=== PATIENT | male | born 2000 | race Caucasian/White ===

== ENCOUNTER 2021-04-28 08:52 | Emergency (ER) | payer BC ==
[~2021-04-28] VITALS: Ht 182.9 cm; Wt 59.5 kg
--- NOTE | 2021-04-28 09:24 | RAD ---
INDICATION: Reason: abdominal pain / Spl. Instructions: / History: COMPARISON: None. IMPRESSION: Abdomen: 2 views obtained. Scoliotic curvature of the spine. Moderate stool at the distal colon with grossly nonobstructive bowel gas pattern. Electronically signed by: Taj Ordonez MD (04/28/2021 9:22 AM) [id number]
[2021-04-28] MEDS ORDERED: IV NORMAL SALINE 1,000ML 1,000 ML IV ONE (09:30)
[2021-04-28] MEDS ORDERED: ONDANSETRON PF 4 MG/2 ML VIAL. IVP ONE (09:45)
[2021-04-28 10:09] LABS: BARBITURATES NEG (NEG); BENZODIAZEPINES NEG (NEG); CANNABINOIDS NEG (NEG); COCAINE NEG (NEG); METHADONE NEG (NEG); OPIATES NEG (NEG); PHENCYCLIDINE NEG (NEG)
[2021-04-28 10:10] LABS: AMPHETAMINE/METHAMPHETAMINE NEG (NEG)
[2021-04-28 10:17] LABS: BASO % 1 % (0-3); EOS # 0.4 x10^3/uL (0.0-0.7); EOS % 9 % (0-3); HEMATOCRIT 45.5 % (39.0-53.0); HEMOGLOBIN 15.3 g/dL (13.0-17.5); LYMPH # 1.3 x10^3/uL (1.0-4.8); LYMPH % 32 % (24-48); MEAN CORPUSCULAR HEMOGLOBIN 30 pg (25-35); MEAN CORPUSCULAR HGB CONC 34 g/dL (31-37); MEAN CORPUSCULAR VOLUME 89 fL (79-100); MONO # 0.3 x10^3/uL (0.0-1.1); MONO % 8 % (0-9); NEUT # 1.9 x10^3uL (1.8-7.7); NEUT % 49 % (31-73); PLATELET COUNT 242 x10^3/uL (140-400); RED CELL DISTRIBUTION WIDTH 12.8 % (11.5-14.5); WHITE BLOOD COUNT 3.9 x10^3/uL (4.0-11.0)
[2021-04-28 10:19] LABS: BACTERIA,URINE 0 /HPF (0-FEW); BILIRUBIN,URINE NEG (NEG); CLARITY,URINE CLEAR; COLOR,URINE YELLOW; GLUCOSE,URINE NEG (NEG); NITRITE,URINE NEG (NEG); RBC,URINE 0 /HPF (0-2); SQUAMOUS EPITHELIAL CELL,UR OCC /LPF; UROBILINOGEN,URINE 0.2 mg/dL (0.2 mg/dL)
[2021-04-28 10:29] LABS: CALCIUM 9.4 mg/dL (8.5-10.1); CREATININE 0.8 mg/dL (0.7-1.3); GFR 123.2; POTASSIUM 4.1 mmol/L (3.5-5.1)
[2021-04-28 10:32] VITALS: BP 132/90
[2021-04-28 10:35] LABS: ALBUMIN 4.6 g/dL (3.4-5.0); ALBUMIN/GLOBULIN RATIO 1.8 (1.0-1.7); TOTAL BILIRUBIN 0.9 mg/dL (0.2-1.0); TOTAL PROTEIN 7.1 g/dL (6.4-8.2)
--- NOTE | 2021-04-28 11:16 | RAD ---
EXAMINATION: CT ABDOMEN+PELVIS WO CLINICAL HISTORY: Abdominal pain, constipation TECHNIQUE: Imaging of the abdomen and pelvis was performed without intravenous contrast using standar d technique, scanning from just above the dome of the diaphragm to the symphysis pubis. Unenhanced i maging is limited for the evaluation of some intra-abdominal and pelvic pathology. CT Dose Reduction Employed: One or more of the following individualized dose reduction techniques wer e utilized for this examination: 1. Automated exposure control 2. Adjustment of the mA and/or kV ac cording to patient size 3. Use of iterative reconstruction technique. COMPARISON: KUB same day FINDINGS: Visualized heart and lungs unremarkable. Layering increased density in the dependent gallbladder, possibly related to biliary sludge and/or no ncalcified stones. No evidence of acute cholecystitis on limited CT evaluation or biliary ductal dila tion. Liver, pancreas, spleen, adrenal glands, and kidneys unremarkable. Mildly filled urinary bladder. Mild to moderate stool in the rectosigmoid colon. Mild stool in the ascending colon. Remainder of the colon is otherwise nondistended. No dilated bowel. The appendix is not definitively visualized, hernandes darlin, what is felt to most likely represent the appendix appears normal. No abdominal aortic or iliac artery aneurysm. No evidence of acute osseous abnormality IMPRESSION: [id number] stool in the rectosigmoid colon, otherwise no evidence of constipation. Layering increased density in the dependent gallbladder without evidence of acute cholecystitis on li mited CT evaluation, possibly related to biliary sludge and/or noncalcified gallstones. Correlate cli nically and consider right upper quadrant ultrasound for further evaluation if concern for acute chol ecystitis. Electronically signed by: Cristian Herrera DO (04/28/2021 11:13 AM) [id number]
[2021-04-28] MEDS ORDERED: ONDA4TAB12 PO (11:23)
--- NOTE | 2021-04-28 11:24 | PHYS DOC ---
Past History Past Surgical History: No Surgical History Alcohol Use: None General Adult EDM: Chief Complaint: ABDOMINAL PAIN HPI: HPI: 21-year-old male presents with abdominal pain. He has been having nausea and abdominal pain intermittently for a couple weeks. He has had decreased appetite overall. The pain tends to be worse in the morning and improves throughout the day. He said that the last 4 days in a row and that is why he came to the emergency room. He has no significant medical history. He denies fever or chills. Review of Systems: Review of Systems: Constitutional: Denies fever or chills Eyes: Denies change in visual acuity HENT: Denies nasal congestion or sore throat Respiratory: Denies cough or shortness of breath Cardiovascular: Denies chest pain or edema GI: Epigastric abdominal pain, nausea. Denies vomiting, bloody stools or diarrhea : Denies dysuria Musculoskeletal: Denies back pain or joint pain Integument: Denies rash Neurologic: Denies headache, focal weakness or sensory changes Endocrine: Denies polyuria or polydipsia Lymphatic: Denies swollen glands Psychiatric: Denies depression or anxiety Current Medications: Current Meds: Current Medications Medications (Trade) Dose Ordered Sig/Justin Start Time Stop Time Status Last Admin Dose Admin Ondansetron HCl (Zofran) 4 mg 1X ONCE 04/28/21 09:45 04/28/21 09:54 DC Sodium Chloride 1,000 ml @ 1,000 mls/hr 1X ONCE 04/28/21 09:30 04/28/21 10:29 DC Allergies: Allergies: Allergies Coded Allergies Type Severity Reaction Last Updated Verified Iodine and Iodide Containing Produc Allergy Unknown 04/28/21 Yes Penicillins Allergy Unknown 04/28/21 Yes amoxicillin Allergy Unknown 04/28/21 Yes Physical Exam: PE: Constitutional: Well developed, well nourished, no acute distress, non-toxic appearance. [] HENT: Normocephalic, atraumatic, bilateral external ears normal, oropharynx moist, no oral exudates, nose normal. [] Eyes: PERRLA, EOMI, conjunctiva normal, no discharge. [] Neck: Normal range of motion, no tenderness, supple, no stridor. [] Cardiovascular:Heart rate regular rhythm, no murmur [] Lungs & Thorax: Bilateral breath sounds clear to auscultation [] Abdomen: Bowel sounds normal, soft, no tenderness, no masses, no pulsatile masses. [] Skin: Warm, dry, no erythema, no rash. [] Back: No tenderness, no CVA tenderness. [] Extremities: No tenderness, no cyanosis, no clubbing, ROM intact, no edema. [] Neurologic: Alert and oriented X 3, normal motor function, normal sensory function, no focal deficits noted. [] Psychologic: Affect normal, judgement normal, mood normal. [] Current Patient Data: Labs: Laboratory Tests Test 04/28/21 09:45 04/28/21 09:58 Urine Collection Type Unknown Urine Color Yellow Urine Clarity Clear Urine pH 7.0 Urine Specific Thayer 1.015 Urine Protein Neg (NEG-TRACE) Urine Glucose (UA) Neg mg/dL (NEG) Urine Ketones (Stick) Neg mg/dL (NEG) Urine Blood Neg (NEG) Urine Nitrite Neg (NEG) Urine Bilirubin Neg (NEG) Urine Urobilinogen Dipstick 0.2 mg/dL (0.2 mg/dL) Urine Leukocyte Esterase Neg (NEG) Urine RBC 0 /HPF (0-2) Urine WBC 1-4 /HPF (0-4) Urine Squamous Epithelial Cells Occ /LPF Urine Bacteria 0 /HPF (0-FEW) Urine Opiates Screen Neg (NEG) Urine Methadone Screen Neg (NEG) Urine Barbiturates Neg (NEG) Urine Phencyclidine Screen Neg (NEG) Urine Amphetamine/Methamphetamine Neg (NEG) Urine Benzodiazepines Screen Neg (NEG) Urine Cocaine Screen Neg (NEG) Urine Cannabinoids Screen Neg (NEG) Urine Ethyl Alcohol Neg (NEG) White Blood Count 3.9 x10^3/uL (4.0-11.0) L Red Blood Count 5.10 x10^6/uL (4.30-5.70) Hemoglobin 15.3 g/dL (13.0-17.5) Hematocrit 45.5 % (39.0-53.0) Mean Corpuscular Volume 89 fL (79-100) Mean Corpuscular Hemoglobin 30 pg (25-35) Mean Corpuscular Hemoglobin Concent 34 g/dL (31-37) Red Cell Distribution Width 12.8 % (11.5-14.5) Platelet Count 242 x10^3/uL (140-400) Neutrophils (%) (Auto) 49 % (31-73) Lymphocytes (%) (Auto) 32 % (24-48) Monocytes (%) (Auto) 8 % (0-9) Eosinophils (%) (Auto) 9 % (0-3) H Basophils (%) (Auto) 1 % (0-3) Neutrophils # (Auto) 1.9 x10^3uL (1.8-7.7) Lymphocytes # (Auto) 1.3 x10^3/uL (1.0-4.8) Monocytes # (Auto) 0.3 x10^3/uL (0.0-1.1) Eosinophils # (Auto) 0.4 x10^3/uL (0.0-0.7) Basophils # (Auto) 0.0 x10^3/uL (0.0-0.2) Sodium Level 146 mmol/L (136-145) H Potassium Level 4.1 mmol/L (3.5-5.1) Chloride Level 107 mmol/L (98-107) Carbon Dioxide Level 30 mmol/L (21-32) Anion Gap 9 (6-14) Blood Urea Nitrogen 16 mg/dL (8-26) Creatinine 0.8 mg/dL (0.7-1.3) Estimated GFR (Cockcroft-Gault) 123.2 BUN/Creatinine Ratio 20 (6-20) Glucose Level 96 mg/dL (70-99) Calcium Level 9.4 mg/dL (8.5-10.1) Total Bilirubin 0.9 mg/dL (0.2-1.0) Aspartate Amino Transferase (AST) 23 U/L (15-37) Alanine Aminotransferase (ALT) 25 U/L (16-63) Alkaline Phosphatase 79 U/L (46-116) Total Protein 7.1 g/dL (6.4-8.2) Albumin 4.6 g/dL (3.4-5.0) Albumin/Globulin Ratio 1.8 (1.0-1.7) H Lipase 93 U/L (73-393) Vital Signs: Vital Signs Date Time Temp Pulse Resp B/P (MAP) Pulse Ox O2 Delivery O2 Flow Rate FiO2 04/28/21 10:32 97.9 73 12 132/90 99 Room Air EKG: EKG: [] Radiology/Procedures: Radiology/Procedures: [] Impressions: EXAMINATION: CT ABDOMEN+PELVIS WO CLINICAL HISTORY: Abdominal pain, constipation TECHNIQUE: Imaging of the abdomen and pelvis was performed without intravenous contrast using standard technique, scanning from just above the dome of the diaphragm to the symphysis pubis. Unenhanced imaging is limited for the evaluation of some intra-abdominal and pelvic pathology. CT Dose Reduction Employed: One or more of the following individualized dose reduction techniques were utilized for this examination: 1. Automated exposure control 2. Adjustment of the mA and/or kV according to patient size 3. Use of iterative reconstruction technique. COMPARISON: KUB same day FINDINGS: Visualized heart and lungs unremarkable. Layering increased density in the dependent gallbladder, possibly related to biliary sludge and/or noncalcified stones. No evidence of acute cholecystitis on limited CT evaluation or biliary ductal dilation. Liver, pancreas, spleen, adrenal glands, and kidneys unremarkable. Mildly filled urinary bladder. Mild to moderate stool in the rectosigmoid colon. Mild stool in the ascending colon. Remainder of the colon is otherwise nondistended. No dilated bowel. The appendix is not definitively visualized, however, what is felt to most likely represent the appendix appears normal. No abdominal aortic or iliac artery aneurysm. No evidence of acute osseous abnormality IMPRESSION: [id number] stool in the rectosigmoid colon, otherwise no evidence of constipation. Layering increased density in the dependent gallbladder without evidence of acute cholecystitis on limited CT evaluation, possibly related to biliary sludge and/or noncalcified gallstones. Correlate clinically and consider right upper quadrant ultrasound for further evaluation if concern for acute cholecystitis. Electronically signed by: Cristian Jason DO (04/28/2021 11:13 AM) [id number] DICTATED AND SIGNED BY: CRISTIAN JASON DO DATE: 04/28/21 1101 CC: ROJAS LOPEZ DO; JAVED SAMPSON ~MTH0 0 Heart Score: C/O Chest Pain: N/A Risk Factors: Risk Factors: DM, Current or recent (<one month) smoker, HTN, HLP, family h istory of CAD, obesity. Risk Scores: Score 0 - 3: 2.5% MACE over next 6 weeks - Discharge Home Score 4 - 6: 20.3% MACE over next 6 weeks - Admit for Clinical Observation Score 7 - 10: 72.7% MACE over next 6 weeks - Early Invasive Strategies Course & Med Decision Making: Course & Med Decision Making Pertinent Labs and Imaging studies reviewed. (See chart for details) The patient's KUB is unremarkable. His labs are unremarkable. Her CT of the abdomen and pelvis shows some stool in the distal colon, but no other significant findings. There is some sludge potentially in the gallbladder. I have recommended the patient try Protonix to see if this may have an element of GERD. I think it is also a good idea to follow-up with his primary doctor and consider a HIDA scan. He is stable for discharge at this time. [] Dragon Disclaimer: Dragon Disclaimer: This electronic medical record was generated, in whole or in part, using a voice recognition dictation system. Departure Departure: Impression: Primary Impression: Abdominal pain Disposition: HOME / SELF CARE / HOMELESS Condition: STABLE Referrals: JAVED SAMPSON (PCP) Patient Instructions: Abdominal Pain (Nonspecific) Scripts Ondansetron (ONDANSETRON ODT) 4 Mg Tab.rapdis 1 TAB PO PRN Q6-8HRS PRN for VOMITING, #16 TAB Prov: ROJAS OLPEZ DO 04/28/21 ROJAS LOPEZ DO Apr 28, 2021 11:24
== END 2021-04-28 11:32 | disposition home or self-care (01) ==
LOC: ER 08:52
DX: K59.00 Constipation, unspecified (principal); Z88.0 Allergy status to penicillin; Z88.1 Allergy status to other antibiotic agents
CPT/HCPCS: 36415; 74018; 74176; 80053; 80307; 81001; 83690; 85025; 99285-25